=== PATIENT | female | born 1995 | race Caucasian/White ===

== ENCOUNTER 2022-04-25 08:04 | Outpatient (CLI) | payer OTHER, SELFPAY ==
--- NOTE | 2022-04-25 08:15 | CRLHL7_ITS ---
For Patients: As a result of the Cures Act, medical imaging exams and procedure reports are released immediately into your electronic medical record. You may view this report before your referring provider. If you have questions, please contact your health care provider. INDICATION: First trimester scan, establish dates. COMPARISON: None. TECHNIQUE: Real-time sanderson-scale imaging of the pelvis was performed. FINDINGS: Sonographic imaging demonstrates a single living intrauterine gestation. The embryo demonstrates a regular cardiac rate measuring 174 beats per minute. The embryo`s crown-rump length measurement of 4.8 cm corresponds to a gestational age of 11 weeks 4 days with a sonographic due date of November 10, 2022. The yolk sac is not seen. There are no gross abnormalities noted within the embryo at this early state of development. The placenta has not yet developed. The gestational sac has a normal appearance and there is no evidence of a perigestational hemorrhage. The amount of fluid within the sac appears appropriate for gestational age. The cervix is closed. The myometrium appears normal. The ovaries are of normal size. Corpus luteum cyst of on the left there are no suspicious fluid collections noted in the cul-de-sac. IMPRESSION: Normal first trimester OB ultrasound exam. Gestational age calculated at 11 weeks 4 days with a sonographic due date of November 10, 2022. Dictated by Darren Monson MD @ 04/25/2022 10:59:18 AM (Electronically Signed)
== END 2022-04-25 08:05 | disposition home or self-care (01) ==
PROVIDERS: Visit Provider Advanced Practice Midwife
DX: Z34.91 Encounter for supervision of normal pregnancy, unspecified, first trimester (principal); Z3A.11 11 weeks gestation of pregnancy
CPT/HCPCS: 76817; 86592; 86703; 86762; 86787; 86803; 86850; 86900; 86901; 87086; 87340

== ENCOUNTER 2022-06-21 09:34 | Outpatient (CLI) | payer OTHER, SELFPAY ==
--- NOTE | 2022-06-21 09:45 | CRLHL7_ITS ---
For Patients: As a result of the Century Cures Act, medical imaging exams and procedure reports are released immediately into your electronic medical record. You may view this report before your referring provider. If you have questions, please contact your health care provider. INDICATION: Evaluate anatomy. COMPARISON: 04/25/2022 TECHNIQUE: Real time sanderson scale imaging of the fetus was performed as well as color Doppler analysis of the umbilical vessels. FINDINGS: Sonographic imaging demonstrates a single living intrauterine gestation. Fetus demonstrates a regular cardiac rate of 148 beats per minute. Fetus has a vertex position. The placenta lies posteriorly without evidence of placenta previa. The heads of the placenta is located 5.0 cm from the internal cervical os. Amniotic fluid volume appears normal. Single deepest vertical pocket: 4.1 cm. The cervix is closed and measures 3.9 cm in length. The composite ultrasound gestational age is calculated at 19 weeks 2 days with an estimated sonographic due date of 11/13/2022. The estimated weight is 275 grams which lies at the 9th %. The following biometric measurements were obtained: Biparietal diameter: 4.2 cm/18 weeks 6 days 9th% Head circumference: 16.4 cm/19 weeks 1 day 10th% Abdominal circumference: 14.3 cm/19 weeks 5 days 33rd% Femur length: 2.8 cm/18 weeks 4 days 5th% The HC/AC ratio measures: 1.15 range (1.09-1.26) On anatomic survey, there is a normal appearance of the cerebral ventricles, cavum septi pellucidi, cisterna magna and cerebellum. The nose, lips, and facial profile appear normal. The cervical, thoracic and lumbar spine are well visualized and appear normal. There is a normal four-chamber heart view and the left and right ventricular outflow tracts appear normal. The diaphragm and stomach appear normal. The kidneys and bladder also appear normal. There is a normal three-vessel cord and cord insertion site. The four extremities appear normal. IMPRESSION: Sonographic gestational age 19 weeks 2 days and sonographic due date 11/13/2022. Sonographic age is 5 days behind the clinical age. Estimated weight 9th percentile. Abdominal circumference 33rd percentile. Biophysical profile 09/08 with absent respiratory activity-this is of doubtful significance at this gestational age. Normal umbilical artery Doppler. Dictated by Brandt Nieves MD @ 06/21/2022 11:04:28 AM (Electronically Signed)
== END 2022-06-21 09:35 | disposition home or self-care (01) ==
LOC: US 09:35
PROVIDERS: PCP Advanced Practice Midwife; Visit Provider Advanced Practice Midwife
DX: Z34.92 Encounter for supervision of normal pregnancy, unspecified, second trimester (principal); Z3A.19 19 weeks gestation of pregnancy
CPT/HCPCS: 76805; 76820

== ENCOUNTER 2022-08-16 08:59 | Outpatient (CLI) | payer OTHER, SELFPAY ==
--- NOTE | 2022-08-16 09:15 | CRLHL7_ITS ---
For Patients: As a result of the Cures Act, medical imaging exams and procedure reports are released immediately into your electronic medical record. You may view this report before your referring provider. If you have questions, please contact your health care provider. INDICATION: Third trimester scan, evaluate growth. COMPARISON: 06/21/2022 TECHNIQUE: Real time sanderson scale imaging of the fetus was performed. FINDINGS: Sonographic imaging demonstrates a single living intrauterine gestation. Fetus demonstrates a regular cardiac rate of 150 beats per minute. Fetus has a vertex position. The placenta lies posteriorly. Amniotic fluid volume appears normal and there is a single deepest vertical pocket: 6.8 cm. The estimated weight is 1061gm which lies at the 17th %. On the prior OB ultrasound exam dated 06/21/2022 the estimated weight was at the 9th%. BPD 14th percentile. HC 21st percentile. AC 30th percentile. FL 9th percentile. The HC/AC ratio measures 1.11 range (1.04-1.22). IMPRESSION: Sonographic gestational age 27 weeks 3 days as sonographic due date 11/12/2022. Sonographic age is 4 days behind the clinical age. Estimated weight 17th percentile. Abdominal circumference 30th percentile. Dictated by Brandt Nieves MD @ 08/16/2022 11:09:56 AM (Electronically Signed)
== END 2022-08-16 09:00 | disposition home or self-care (01) ==
PROVIDERS: PCP Advanced Practice Midwife; Visit Provider Advanced Practice Midwife
DX: Z34.82 Encounter for supervision of other normal pregnancy, second trimester (principal); Z3A.27 27 weeks gestation of pregnancy
CPT/HCPCS: 76816; 86592

== ENCOUNTER 2022-10-10 09:45 | Outpatient (CLI) | payer OTHER, SELFPAY ==
--- OUTSIDE RECORDS SUMMARY | 2022-10-11 11:06 | XMS_ITS | Patient Health Record ---
Author Name Unknown Organization [facility] Address [address] [place] [address] Care Team Providers Care Rn International Name Role Phone Yuri Vance Unavailable [phone] Yuri Vance MD Unavailable Unavailabl e ALLERGIES No Known Allergies REASON FOR REFERRAL No Information SOCIAL HISTORY Sex Assigned At : Social History Observation Description Sex Assigned At Unknown Encounters Encounter Location Date Provider Diagnosis [facility] [address] [place] [address] 03/04/2022 Yuri Vance Physical exam, pre-employment Z02.1 ASSESSMENTS Encounter Date Diagnosis Assessment Notes Treatment Notes Treatment Clinical Notes 03/04/2022 Physical exam, pre-employment (ICD-10 - Z02.1) 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 There are no restrictions for her job. She has no medical concerns. She has no latex allergy. PLAN OF TREATMENT No Information Insurance Providers Payer Name Payer Address Payer Phone Subscriber Number Group Number Insured Name Patient Relationship to Insured Coverage Start Date Coverage End Date [facility] [address] [place] [address] [id number] Lea Hernandez Self - patient is the insured MEDICAL (GENERAL) HISTORY Surgical History Surgery Date(Month/Year)
== END 2022-10-10 09:46 | disposition home or self-care (01) ==
LOC: NFLDREF 10-11 11:04
PROVIDERS: PCP Advanced Practice Midwife; Referring Provider Advanced Practice Midwife; Visit Provider Advanced Practice Midwife
DX: Z34.80 Encounter for supervision of other normal pregnancy, unspecified trimester (principal)
CPT/HCPCS: 87081; 87653

== ENCOUNTER 2022-11-14 09:03 | Outpatient (CLI) | payer OTHER, SELFPAY ==
--- OUTSIDE RECORDS SUMMARY | 2022-11-14 09:07 | XMS_ITS | Patient Health Record ---
Author Name Unknown Organization [facility] Address [address] [place] [address] Care Team Providers Care Baccarat Dealer Name Role Phone Yuri Vance Unavailable [phone] Yuri Vance MD Unavailable Unavailabl e ALLERGIES No Known Allergies REASON FOR REFERRAL No Information SOCIAL HISTORY Sex Assigned At : Social History Observation Description Sex Assigned At Unknown Encounters Encounter Location Date Provider Diagnosis [facility] [address] [place] [address] 03/04/2022 Yuri Vance Physical exam, pre-employment Z02.1 ASSESSMENTS Encounter Date Diagnosis Assessment Notes Treatment Notes Treatment Clinical Notes 03/04/2022 Physical exam, pre-employment (ICD-10 - Z02.1) 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 There are no restrictions for her job. She has no medical concerns. She has no latex allergy. PLAN OF TREATMENT No Information Insurance Providers Payer Name Payer Address Payer Phone Subscriber Number Group Number Insured Name Patient Relationship to Insured Coverage Start Date Coverage End Date [facility] [address] [place] [address] [id number] Lea Hernandez Self - patient is the insured MEDICAL (GENERAL) HISTORY Surgical History Surgery Date(Month/Year)
--- NOTE | 2022-11-14 09:15 | CRLHL7_ITS ---
For Patients: As a result of the Century Cures Act, medical imaging exams and procedure reports are released immediately into your electronic medical record. You may view this report before your referring provider. If you have questions, please contact your health care provider. INDICATION: Post-term COMPARISON: 08/16/2022 TECHNIQUE: Real time sanderson scale imaging of the fetus was performed. Without non-stress testing. FINDINGS: Sonographic imaging demonstrates a single living intrauterine gestation. Fetus demonstrates a regular cardiac rate of 149 beats per minute. Fetus has a vertex position. The amniotic fluid volume appears normal and there is a single deepest pocket measurement of 5.5 cm. The fetus was active and demonstrated normal breathing movements. There was normal flexion and extension of the trunk and extremities. IMPRESSION: Normal biophysical profile score of 8 out of 8. Dictated by Brandt Nieves MD @ 11/14/2022 9:45:24 AM (Electronically Signed)
== END 2022-11-14 09:04 | disposition home or self-care (01) ==
PROVIDERS: Visit Provider Advanced Practice Midwife
DX: O48.0 Post-term pregnancy (principal)
CPT/HCPCS: 76819; A9270; J2001; J2590

== ENCOUNTER 2022-11-14 23:03 | Inpatient (IN) | payer OTHER, SELFPAY ==
[2022-11-14 23:24] VITALS: TEMP 36.6
[2022-11-15] VITALS (23 sets, daily range): BP systolic 109–150; BP diastolic 57–90; PULSE 71–93; RESP 15–20; TEMP 36.6–37; O2SAT 93–97
[2022-11-15] MEDS: OXYTOCIN 10 UNIT/ML INJ IM (00:14)
[2022-11-15] MEDS: miSOPROStoL 800 MCG/4 TABLET PR (00:27)
[2022-11-15] MEDS: LIDOCAINE 1 % PF 30 ML INJECTION (00:38)
--- NOTE | 2022-11-15 00:58 | P.LDBA_ITS ---
Subjective History of Present Illness Time Seen by Provider: 23:20 Date Seen: 11/14/22 Specific Issues/Plans : Mohit H & P done 10/17/22 by Onofre Rockwell 1. Close spaced pregnancies (<6 mo conception after last ) 2. BMI 36.8 20 wk GTT-declines 3. EFW at 20wks 9%. Last baby measured consistently small. Declines MFM referral. Growth at 28 wks: EFW 17% 4. GBS positive, needs antibiotics in labor Penicillin Covid: completed series 2020, not boosted Flu: 12/05/2021 TDAP: 08/31/2022 32wk Mental Health: 09/13/2022 Comments: Lea is being admitted to Labor and Delivery for active labor, imminent delivery. She is a 26 year old G 3 P 1011 at?40.6 weeks gestation. Her full history and physical was dictated by Onofre Rockwell on 10/17/22. Please see this for details. ? Lea was seen in the clinic today, where she had hre membranes stripped at her request. States cramping intensified around 1845. On arrival, SVE BBOW, possibly complete per R. SVE done in hands and knees, and difficult to palpate. She was also feeling pressure and mildly spontaneously pushing at that time. She is coping well with labor pain/contractions. Mohit is with her for support, and her menswear salesperson is on her way. She is planning a waterbirth for pain management, has done w/ previous also. OB - Problem Based A/P Additional Plan (1) Uterine contractions: Status: Acute (2) Active labor at term: Status: Acute (3) Positive GBS test: Status: Acute Plan 26 yo t 40.6 weeks on admit GBS positive complicated by: -closely spaced pregnancies -Measuring small for dates. Growth at 28 wks: EFW 17% Active labor, delivery imminent 1. Admit to L & D 2. Decision made to forgo treating GBS, will not get adequate treatment 3. IV not necessary at this time 4. Intermittent monitoring per protocol 5. Candidate for analgesia of choice. Planning unmedicated 6. Desires waterbirth. Consent signed, Hep C neg 7. Anticipate progress to NVD Delivery/Labor/Induction Plan Plan: expectant management OB Exam Physical Exam Vital signs: Temp Pulse BP Pulse Ox 98 F 85 120/64 93 11/14/22 23:24 11/15/22 00:44 11/15/22 00:44 11/15/22 00:34 Narrative: VSS, afebrile? General Appearance:? Calm, cooperative.? No acute distress.? Normal affect.? Psychiatric Exam: Alert and oriented, appropriate affect? HEENT: normocephalic, neck supple, full ROM? Respiratory:? Symmetrical chest wall movement.? Normal respiratory effort.? Abdomen: Gravid, non tender? Extremities:? normal and trace edema? Skin: warm, dry.??? Ctx:?Strong ctx, about Q 3 min apart FHTs:? Baseline: 145.? Variability: moderate.?? Accels: present.??? Decels:? none.? SVE: likely complete, BBOW per RN? Membranes: intact? Detailed Labor and Delivery Exam Patient Gravid: Yes
[2022-11-15] MEDS: IBUPROFEN 600 MG TABLET PO ×4 (01:00→19:09)
--- NOTE | 2022-11-15 01:11 | W.PM.OBVAGDE ---
OB Procedure Vag Delivery Mother Details Mother Details: The patient is a 26 year-old, 3, now Para 2, admitted on 11/14/22 at 40.6 weeks gestation. Delivery occurred on 11/15 at 41.0 weeks. : 3 Para: 2 Weeks Gestation: 41.0 Admission Date: 11/14/22 Additional Details Amniotic Membrane Status: SROM Amniotic Membrane Rupture Date: 11/15/22 Amniotic Membrane Rupture Time: 23:54 Amniotic Membrane Fluid Description: Clear Analgesia/Anesthesia Type: Local (for repair only) Waterbirth: Yes Pitcoin: No (For AMTSL only) Intrapartal Events: None Labor Onset: 20:00 Complete: 23:00 Pushin:30 Heart: heart tones during second stage were WNL per doppler Delivery Details Delivery Date: 11/15/22 Delivery Time: 00:12 Route of delivery: Gender: Male Infant Viability: Alive; Heart Rate Present Position at Delivery: OA Delivery Details: Lea arrived complete, noted to be involuntary pushing at times. Upon my arrival, she transferred to the waterbirth tub and continue to labor/push in there. She did c/o intense back and hip pain, and tried various positions and counter pressure to relieve this. At 0012 a viable?male delivered in vertex OA presentation over intact perineum via spontaneous vaginal?delivery. ?Nuchal cord, loose, reduced. was placed on maternal abdomen. ?Cord was clamped and cut after a 10+ minute delay.? Nose and mouth were bulb suctioned.? Infant weight pending. ? 8 at 1 minute and 9 at 5 minutes. ?Shoulder dystocia: no. ?Nuchal cord: yes. Placenta delivered spontaneously and complete at 0026 with a 3 vessel cord. Brisk bleeding noted at that time, increased w/ crede. Pitocin given for AMTSL previously prior to exiting the tub. Cytotec placed rectally at this time. Bleeding noted to be slowinh. Mother and were stable after?delivery. Lacerations:? 1st degree, repaired with 4-0 vicryl.? Blood loss: QBL 300 ml, EBL from tub 200 = 500. Blood loss measurement type: QBL? EBL Sponge and needles counts are correct. 1 Minute Interval Total Score: 8 5 Minute Interval Total Score: 9 Additional Details Shoulder Dystocia: No Placenta Delivery Time: 00:26 Placental Delivery Description: Spontaneous Delivery repair: Vicryl Procedure Done: Global Blood Loss: 500 Laceration: Perineal - 1st Degree Blood Loss Measurement Type: EBL Bakri Used: No Sponge/Need Count Correct: Yes Cord Vessel Description: 3 Vessels, Nuchal Cord, Loose and Reduced Event Summary Status: Mother and infant were stable after delivery. Disposition: floor
[2022-11-15] MEDS: ACETAMINOPHEN 500 MG TABLET 1000 MG PO ×4 (03:54→21:42)
[2022-11-15] MEDS: DOCUSATE SODIUM 100 MG CAPSULE PO (07:21)
[2022-11-16] MEDS: IBUPROFEN 600 MG TABLET PO ×2 (01:37→07:27)
[2022-11-16] MEDS: ACETAMINOPHEN 500 MG TABLET 1000 MG PO ×2 (03:58→10:26)
--- NOTE | 2022-11-16 07:42 | P.DS_ITS ---
DS: Providers Provider Time Seen by Provider: 07:42 Date Seen: 11/16/22 Date of admission: 11/14/22 23:03 Primary care physician: Not a Local Provider Admitting Clinician: Kourtney Rockwell CNM Attending Physician on discharge: Kourtney Rockwell CNM Date of Discharge: 11/16/22 DS: Diagnosis Discharge Diagnosis (1) NVD (normal vaginal delivery): Status: Acute (2) First degree laceration of perineum during delivery, : Status: Acute (3) Lactating mother: Status: Acute (4) Positive GBS test: Status: Acute Exam Narrative: Exam Narrative: VSS, afebrile GENERAL APPEARANCE: ?normal affect, alert, no distress MOOD: ?appropriate HEENT: normocephalic, neck supple, full ROM CHEST: ?Symmetrical chest wall movement. ?Normal respiratory effort. ?Clear to auscultation HEART: ?regular rate and rhythm ABDOMEN: ?soft, non-tender. Uterine fundus is firm, 1 below Umbilicus, Midline and is appropriate for the stage of recovery. ?Bowel sounds present. PERINEUM: ?mild edema of the perineum, there is a 1st degree laceration that is healing well. EXTREMITIES: ?normal and no edema Const: Vital Signs, click to edit/add: Vital Signs - 24 hr 11/15/22 11:15 11/15/22 14:16 11/15/22 18:07 Temperature 98.1 F 97.9 F 97.8 F Pulse Rate [Blood Pressure Cuff] 72 73 73 Pulse Rate [Pulse Oximeter] 72 72 73 Respiratory Rate 16 16 16 Blood Pressure [Ri ght Arm] 138/89 131/84 136/81 Pulse Oximetry 96 97 97 Oxygen Delivery Me thod Room Air Room Air Room Air 11/15/22 21:05 11/15/22 23:21 Temperature 98.1 F 97.8 F Pulse Rate [Blood Pressure Cuff] Pulse Rate [Pulse Oximeter] 82 75 Respiratory Rate 15 Blood Pressure [Ri ght Arm] 129/90 H 127/85 Pulse Oximetry 97 97 Oxygen Delivery Me thod Room Air Room Air Documenting provider has reviewed patient's vital signs: yes OB - DS: Summary Hospital Course Hospital Course: Lea is a 26 y.o. G 3 P 2011 who was admitted to L & D for active labor. ?She had an uncomplicated NVD The patient feels well. ?The pain is well controlled with current medications. ?She has no new complaints. ?She is breast feeding and reports things are going well.? the patient has done well.? Vitals have been stable.? She has remained afebrile.? Has a good appetite, is tolerating a general diet. ?She is voiding without difficulty.? She is passing gas and has had a bowel movement.? She is ambulating and denies any dizziness.? Has Small amount of rubra lochia. She is planning partner vasectomy for prevention. Problems: BPs trending up plan: Discharge home with baby. Follow up in 2 weeks and 6 weeks. , may follow up with if needed BPs trending up. 130s/80s. No previous hx of preeclampsia -will check BPs at home twice a day and call if 140/90 or higher -Aware of signs to call for also. Peripartum Data delivery method: Vaginal Laceration description: Perineal - 1st Degree complications: none Gender: Male Discharge Plan: Home Status at Discharge Functional status at discharge: independent ambulation Overall status at discharge: patient is progressing back to baseline Time Spent with Patient Time attestation: Total time spent providing and/or coordinating discharge services: Time spent: Less than 30 minutes Discharge Plan Discharge Disposition: Home, Self-Care Date of Admission: 11/14/22 23:03 Attending Provider on Discharge: Kourtney Rockwell Primary Care Provider: Provider,Not a Local Condition: Stable Anticipated Discharge Date/Time: 11/16/22 16:00 Discharge Medications: New docusate sodium 100 mg Capsule 100 mg PO BID PRNQty: 100 0RF Rx Instructions: Take 1 cap 1-2 times a day as needed for constipation ibuprofen 600 mg Tablet 600 mg PO Q6H PRNQty: 60 0RF (DME) Blood Pressure Cuff Misc See Rx Instructions .Route Qty: 1 0RF Rx Instructions: As directed Continued prenat.vits,carlos,[id number] Tablet 1 tab PO QDAY omeprazole 20 mg capsule,delayed release(DR/EC) 20 mg PO BID Qty: 60 6RF magnesium citrate Solution 150 ml PO ONCE PRN Rx Instructions: as a single dose Discontinued ferrous gluconate 324 mg (38 mg iron) tablet 324 mg PO DAILY ondansetron HCl 4 mg tablet 4 mg PO Q6-8H PRN (Reason: nausea and vomiting) Qty: 60 2RF aspirin 81 mg tablet,delayed release (DR/EC) DAILY Discharge Orders: Discharge Order (Routine); Ordered 11/16/22 Ordered By: Kourtney Rockwell Patient Education: OB Over the Counter Medication Information, OB Vaginal/Breast Feeding Additional Instructions: Follow up in 2 weeks and 6 weeks in the clinic. Check blood pressures twice a day. Call if blood pressures are 140/90 or higher, or if having headache, vision changes, or pain on the right side where y our ribs end. Activity Level: Activity as Tolerated Discharge Diet: Regular Follow Up Appointments: Provider,Not a Local [Primary Care Provider] - Forms: Viscose Closuresth Info Instructions
[2022-11-16 09:30] VITALS: BP 123/77; PULSE 83; RESP 18; TEMP 36.9; O2SAT 97
[2022-11-16] MEDS: DOCUSATE SODIUM 100 MG CAPSULE PO (09:33)
== END 2022-11-16 12:52 | disposition home or self-care (01) | DRG 807 ==
LOC: OB OUT 11-15 10:47
PROVIDERS: Admitting Provider Advanced Practice Midwife; Visit Provider Advanced Practice Midwife
DX: O99.824 Streptococcus B carrier state complicating childbirth (principal); Z37.0 Single live birth; O70.0 First degree perineal laceration during delivery; Z3A.40 40 weeks gestation of pregnancy
CPT/HCPCS: 99213; A9270; J2001; J2590